=== PATIENT | female | born 1990 | race Caucasian/White ===

== ENCOUNTER 2016-11-29 20:43 | Emergency (ER) | payer MEDICAID ==
[2016-11-29 21:53] VITALS: BP 114/81
== END 2016-11-29 21:50 | disposition home or self-care (01) ==
LOC: ED 20:43
DX: B34.9 Viral infection, unspecified (principal)

== ENCOUNTER 2017-03-14 13:17 | Emergency (ER) | payer MEDICAID ==
[~2017-03-14] VITALS: Ht 165.1 cm; Wt 59.1 kg
[2017-03-14 13:58] VITALS: Ht 165.1 cm; Wt 59.1 kg
[2017-03-14 17:25] LABS: HCG SERUM QUALITATIVE POSITIVE; HCG SERUM QUANTITATIVE 1150 mIU/mL
[2017-03-14 18:12] LABS: PLATELET COUNT 209 x10^3mcL (130-400); RED CELL DISTRIBUTION WIDTH 13.6 % (11.5-14.5)
[2017-03-14 18:13] LABS: BASOPHIL % 0.4 % (0-2)
[2017-03-14 20:15] VITALS: BP 114/73
== END 2017-03-14 20:15 | disposition home or self-care (01) ==
LOC: ED 13:17
PROVIDERS: Emergency Medicine
DX: O20.0 Threatened abortion (principal); O23.41 Unspecified infection of urinary tract in pregnancy, first trimester; Z3A.00 Weeks of gestation of pregnancy not specified
CPT/HCPCS: 36415

== ENCOUNTER 2017-03-21 20:43 | Emergency (ER) | payer MEDICAID ==
[~2017-03-21] VITALS: Ht 165.1 cm; Wt 58.0 kg
[2017-03-21 20:52] VITALS: Ht 165.1 cm; Wt 58.0 kg
[2017-03-21 22:45] VITALS: BP 116/70
== END 2017-03-21 22:45 | disposition home or self-care (01) ==
LOC: ED 20:43
DX: O23.40 Unspecified infection of urinary tract in pregnancy, unspecified trimester (principal); Z3A.00 Weeks of gestation of pregnancy not specified
CPT/HCPCS: J0696; Q0162

== ENCOUNTER 2019-10-27 07:00 | Emergency (ER) | payer MEDICAID ==
[~2019-10-27] VITALS: Ht 165.1 cm; Wt 74.4 kg
[2019-10-27 07:11] VITALS: Ht 165.1 cm; Wt 74.4 kg
[2019-10-27 07:55] VITALS: BP 125/71
== END 2019-10-27 07:55 | disposition home or self-care (01) ==
LOC: ED 07:00
DX: L50.9 Urticaria, unspecified (principal)